=== PATIENT | male | born 1995 | race Caucasian/White ===

== ENCOUNTER 2017-05-08 06:23 | Emergency (ER) | payer BC, OTHER ==
[2017-05-08] MEDS ORDERED: Lidocaine 1% 50 ML MDV INJECT ONE (07:03)
--- NOTE | 2017-05-08 07:05 | EDM.PDOC ---
ED HPI GENERAL MEDICAL PROBLEM - General Chief Complaint: Laceration Stated Complaint: FELL OFF ARIS MALAVE Time Seen by Provider: 05/08/17 06:54 Source of Information: Reports: Patient, RN Notes Reviewed - History of Present Illness INITIAL COMMENTS - FREE TEXT/NARRATIVE: 21 year old male slipped at work with resultant lac to L ant. lower leg, deep, gaping. localized pain but has been able to ambulate. No other acute injury. Unsure of last tetanus, likely long ago. Left Leg Pain Score (Numeric/FACES): 6 - Related Data Allergies Allergy/AdvReac Type Severity Reaction Status Date / Time No Known Allergies Allergy Verified 05/08/17 06:36 Home Meds: Home Meds Cephalexin 500 mg PO QID #20 capsule 05/08/17 [Rx] Past Medical History - Past Surgical History GI Surgical History: Reports: Appendectomy Social & Family History - Tobacco Use Smoking Status *Q: Never Smoker - Caffeine Use Caffeine Use: Reports: Coffee - Recreational Drug Use Recreational Drug Use: No ED ROS GENERAL - Review of Systems Review Of Systems: See Below Constitutional: Reports: No Symptoms HEENT: Reports: No Symptoms Respiratory: Denies: Shortness of Breath Cardiovascular: Denies: Chest Pain GI/Abdominal: Denies: Nausea, Vomiting Musculoskeletal: Reports: Leg Pain Skin: Reports: Other (leg lac) Neurological: Reports: Numbness (gone) ED EXAM, SKIN/RASH Exam: See Below Exam Limited By: No Limitations General Appearance: Alert, No Apparent Distress Head: Atraumatic Neck: Supple, Full Range of Motion Respiratory/Chest: No Respiratory Distress Extremities: Other (6 cm lac L lower ant leg, deep, gaping, no bony tenderness, no pain with torsion of leg or longitudinal compression) Neurological: Alert, Oriented, No Motor/Sensory Deficits ED SKIN PROCEDURES - Laceration/Wound Repair Left Lower Leg Lac/Wound length In cm: 8 Appearance: Linear Distal NVT: Neuro & Vascular Intact Anesthetic Type: Local Local Anesthesia - Lidocaine (Xylocaine): 1% Plain Exploration/Debridement/Repair: Wound Explored Suture Size: 3-0 # of Sutures: 18 Suture Type: Nylon Suture Size: 4-0 # of Sutures: 6 Repaired with: Vicryl Course - Vital Signs Last Recorded V/S: Last Vital Signs Temp 97.1 F 05/08/17 06:37 Pulse 70 05/08/17 06:37 Resp 18 05/08/17 06:37 BP 153/81 H 05/08/17 06:37 Pulse Ox 97 05/08/17 06:37 - Orders/Labs/Meds Meds: Medications Discontinued Medications Generic Name Dose Route Start Last Admin Trade Name Rony PRN Reason Stop Dose Admin Cephalexin 500 mg 05/08/17 07:13 05/08/17 07:20 Keflex PO 05/08/17 07:14 500 mg ONETIME ONE Administration Diphtheria/Tetanus/Acell Pertussis 0.5 ml 05/08/17 07:13 05/08/17 07:20 Adacel IM 05/08/17 07:14 0.5 ml .ONCE ONE Administration Lidocaine HCl 50 ml 05/08/17 07:03 05/08/17 07:12 Xylocaine 1% INJECT 05/08/17 07:04 50 ml ONETIME ONE Administration Departure - Departure Time of Disposition: 07:55 Disposition: Home, Self-Care 01 Condition: Fair Clinical Impression: Leg laceration Qualifiers: Encounter type: initial encounter Laterality: left Qualified Code(s): S81.812A - Laceration without foreign body, left lower leg, initial encounter - Discharge Information Prescriptions: Cephalexin 500 mg PO QID #20 capsule Instructions: Laceration Care, Adult, [id number] Referrals: PCP,None [Primary Care Provider] - Forms: ED Department Discharge Additional Instructions: Rest and elevate leg as much as possible, change dressing once or twice daily, apply antibiotic ointment with each dressing change, off work today and tomorrow , then return to work Wednesday as tolerated, keep leg wrapped for protection and extra-support when working, stitches out in 12 days, have rechecked any sign of infection, there is no charge if you have those removed at our [facility] clinic.
[2017-05-08] MEDS ORDERED: Cephalexin 500 MG Cap PO ONE (07:13)
[2017-05-08] MEDS ORDERED: Diphtheria,Pertussis(Acell),Tetanus Vaccine 0.5 ML SDV IM ONE (07:13)
== END 2017-05-08 08:45 | disposition home or self-care (01) ==
LOC: JD.ED 06:23
DX: S81.812A Laceration without foreign body, left lower leg, initial encounter (principal); Z23 Encounter for immunization; Z90.49 Acquired absence of other specified parts of digestive tract; W01.0XXA Fall on same level from slipping, tripping and stumbling without subsequent striking against object, initial encounter; Y92.511 Restaurant or cafe as the place of occurrence of the external cause; Y99.0 Civilian activity done for income or pay
CPT/HCPCS: 12034; 90471; 90715; 99283; A9270